=== PATIENT | male | born 1995 | race Caucasian/White ===

== ENCOUNTER 2018-11-30 19:38 | Emergency (ER) | payer BC ==
[2018-11-30 20:17] VITALS: BP 127/63
--- NOTE | 2018-11-30 20:54 | UC ---
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 no trauma - History Of Current Complaint Chief Complaint: UCUpperExtremity Stated Complaint: LT WRIST COMPLAINT,SINUS Time Seen by Provider: 11/30/18 20:45 Hx Obtained From: Patient Onset/Duration: Gradual Onset, Lasting Days Severity Initially: Mild Severity Currently: Mild Pain Intensity: 4 Pain Scale Used: 0-10 Numeric Character Of Pain: Dull, Aching Aggravating Factor(s): Movement Alleviating Factor(s): Rest Related History: Dominant Hand Right - Allergies/Home Medications Allergies/Adverse Reactions: Allergies Allergy/AdvReac Type Severity Reaction Status Date / Time No Known Allergies Allergy Verified 11/30/18 20:17 Home Medications: Home Medications Fluticasone/Vilanterol MDI(NF) [Breo Ellipta MDI (NF)] 1 puff INH DAILY [History Confirmed 11/30/18] PMH/Surg Hx/FS Hx/Imm Hx Previously Healthy: Yes - Surgical History Surgical History: None - Family History Known Family History: Positive: Hypertension, Respiratory Disease - Social History Alcohol Use: Occasionally Substance Use Type: None Smoking Status (MU): Never Smoked Tobacco - Immunization History Vaccination Up to Date: Yes Review of Systems All Other Systems Reviewed And Are Negative: Yes Constitutional: Positive: Negative Skin: Positive: Negative Eyes: Positive: Negative ENT: Positive: Negative Respiratory: Positive: Negative Cardiovascular: Positive: Negative Gastrointestinal: Positive: Negative Genitourinary: Positive: Negative Motor: Positive: Negative Neurovascular: Positive: Negative Musculoskeletal: Positive: Arthralgia Neurological: Positive: Negative Psychological: Positive: Negative Physical Exam Triage Information Reviewed: Yes Appearance: Well-Appearing, No Pain Distress, Well-Nourished Vital Signs: Initial Vital Signs Temp 97.5 F 11/30/18 20:14 Pulse 65 11/30/18 20:14 Resp 14 11/30/18 20:14 BP 127/63 11/30/18 20:14 Pulse Ox 100 11/30/18 20:14 Vital Signs Reviewed: Yes Eyes: Positive: Conjunctiva Clear ENT: Positive: Hearing grossly normal. Negative: Nasal congestion, Nasal drainage, Trismus, Muffled voice, Hoarse voice Dental Exam: Normal Neck: Positive: Supple, Nontender, No Lymphadenopathy Respiratory: Positive: Lungs clear, Normal breath sounds, No respiratory distress Cardiovascular: Positive: RRR, No Murmur Musculoskeletal: Positive: ROM Intact, Other: - tender radial aspect of wrist, + Finkl[place]in Neurological: Positive: Alert, Muscle Tone Normal Psychological Exam: Normal Skin Exam: Normal Diagnostics - Radiology No standard instances Radiology Interpretation Completed By: ED Physician Summary of Radiographic Findings: no fracture, calcification radial aspect of wrist of ? significance Hand/Wrist Course/Dx - Differential Dx/Diagnosis Provider Diagnosis: Radial styloid tenosynovitis of left hand Discharge - Sign-Out/Discharge Documenting (check all that apply): Patient Departure All imaging exams completed and their final reports reviewed: No - Discharge Plan Condition: Stable Disposition: HOME Patient Education Materials: Tenosynovitis (ED) Referrals: Edd Culp MD [Medical Doctor] - As Soon As Possible Additional Instructions: splint as needed official xr reading pending heat massage advil or aleve - Billing Disposition and Condition Condition: STABLE Disposition: Home
--- NOTE | 2018-12-01 14:38 | UC ---
- Progress Note Progress Note: RADIOLOGY REPORT REVIEWED. CONFIRMS SOFT TISSUE CALCIFIC DEPOSIT ALONG THE LATERAL ASPECT OF THE CARPAL BONES. NO CHANGE IN MGMT. Course/Dx - Diagnoses Provider Diagnoses: Radial styloid tenosynovitis of left hand Discharge - Sign-Out/Discharge Documenting (check all that apply): Post-Discharge Follow Up All imaging exams completed and their final reports reviewed: Yes - Discharge Plan Condition: Stable Disposition: HOME Patient Education Materials: Tenosynovitis (ED) Referrals: Edd Culp MD [Medical Doctor] - As Soon As Possible Additional Instructions: splint as needed official xr reading pending heat massage advil or aleve - Billing Disposition and Condition Condition: STABLE Disposition: Home
== END 2018-11-30 21:31 | disposition home or self-care (01) ==
LOC: UCCORT 19:38
DX: M65.832 Other synovitis and tenosynovitis, left forearm (principal)
CPT/HCPCS: 99203; G0463